=== PATIENT | female | born 2000 ===

== ENCOUNTER 2022-12-21 15:39 | Outpatient (REF) | payer MEDICAID, SELFPAY | END 2022-12-21 15:40 | disposition home or self-care (01) | LOC: HO.CHCLNP 15:39 | PROVIDERS: Visit Provider Pediatrics | DX: N76.0 Acute vaginitis (principal); B96.89 Other specified bacterial agents as the cause of diseases classified elsewhere | CPT/HCPCS: 81513; 87480; 87510; 87660 ==

== ENCOUNTER 2023-01-17 09:53 | Outpatient (REF) | payer MEDICAID, SELFPAY ==
[2023-01-18 15:21] LABS: Influenza A PCR NEGATIVE (Negative); Influenza B PCR NEGATIVE (Negative); Resp Syncy Virus RNA Qual PCR NEGATIVE (Negative); SARS COV2 PCR INHOUSE NEGATIVE (Negative)
== END 2023-01-17 09:54 | disposition home or self-care (01) ==
LOC: HO.LNP 09:53
PROVIDERS: Visit Provider Emergency Medicine
DX: Z20.822 Contact with and (suspected) exposure to COVID-19 (principal); J06.9 Acute upper respiratory infection, unspecified
CPT/HCPCS: 0241U; 87070

== ENCOUNTER 2023-08-01 16:13 | Outpatient (REF) | payer MEDICAID, SELFPAY | END 2023-08-01 16:14 | disposition home or self-care (01) | LOC: HO.CHCLNP 16:13 | PROVIDERS: Visit Provider Family Medicine | DX: N76.0 Acute vaginitis (principal) | CPT/HCPCS: 36415; 81513; 87491; 87591 ==

== ENCOUNTER 2023-10-10 11:04 | Outpatient (REF) | payer MEDICAID, SELFPAY ==
[2023-10-10 15:05] LABS: MANUAL DIFF FLAG NO
[2023-10-10 15:15] LABS: Basophils Percent Auto 0.6 % (0-2); Eosinophils Absolute Auto 0.2 X10*3/uL (0.0-0.4); Eosinophils Percent Auto 2.8 % (0-4); Hematocrit 42.3 % (37.0-47.0); Hemoglobin 13.7 g/dl (12.0-16.0); Imm Gran Abs Auto 0.03 X10*3/uL (0.00-0.03); Imm Gran Pct Auto 0.4 % (0.0-0.4); Lymphocytes Absolute Auto 1.7 X10*3/uL (1.2-4.9); Lymphocytes Percent Auto 24.4 % (20-40); Mean Corpuscular HGB Conc 32.4 g/dl (31.0-35.0); Mean Corpuscular Hemoglobin 29.1 pg (27.0-33.0); Mean Platelet Volume 13.2 fL (9.4-12.3); Monocytes Absolute Auto 0.5 X10*3/uL (0.1-1.2); Monocytes Percent Auto 7.1 % (2-11); Neutrophils Absolute Auto 4.6 x10*3/uL (2.0-8.3); Neutrophils Percent Auto 64.7 % (45-73); Platelet Count 191 X10*3/uL (160-400); Red Cell Distribution Width 12.8 % (11.0-16.0); White Blood Count 7.1 X10*3/uL (4.8-10.8)
[2023-10-10 15:35] LABS: Alanine Aminotransferase 16 U/L (0-31); Albumin Level 4.3 g/dL (3.5-5.0); Alkaline Phosphatase 79 U/L (39-117); Anion Gap 12 (12-20); Aspartate Amino Transferase 17 U/L (5-31); Bilirubin Total 0.4 mg/dL (0.0-1.0); Blood Urea Nitrogen 8 mg/dL (9-16); Calcium 9.4 mg/dL (8.4-10.2); Carbon Dioxide 26 mmol/L (22-29); Chloride 105 mmol/L (96-108); Estimated Glomerular Filt Rate > 60; Glucose Random 90 mg/dL (60-115); Potassium 4.7 mmol/L (3.3-5.1); Sodium 138 mmol/L (135-145); Total Protein 7.8 g/dL (6.5-8.0)
[2023-10-10 15:58] LABS: HCG Quantitative < 2 mIU/mL; Insulin 14 uU/mL (2-29); Vitamin D 25-OH Total 14.8 ng/mL (>30)
[2023-10-10 16:03] LABS: Folate 5.5 ng/mL (> or = 4.0); Vitamin B12 450 pg/mL (200-900)
[2023-10-11 04:10] LABS: HIV AB/AG Nonreactive (Nonreactive); HIV Num 1 0.07 S/CO (0.00-0.99)
== END 2023-10-10 11:05 | disposition home or self-care (01) ==
LOC: HO.CHCLDS 11:04
PROVIDERS: Visit Provider Family Medicine
DX: R42 Dizziness and giddiness (principal)
CPT/HCPCS: 36415; 80053; 82306; 82607; 82746; 83525; 84443; 84702; 85025; 87389

== ENCOUNTER 2024-06-24 | Outpatient (REF) | payer MEDICAID, SELFPAY ==
[2024-06-24 16:25] LABS: Bacterial Vaginosis PCR POSITIVE (Negative); Candida Group PCR NOT DETECTED (Not Detect); Candida glab krusei PCR NOT DETECTED (Not Detect); Trichomonas vaginalis PCR NOT DETECTED (Not Detect)
[2024-06-26 19:23] LABS: C. trachomatis RNA TMA NOT DETECTED (NOT DETECTED); N. gonorrhoeae RNA TMA NOT DETECTED (NOT DETECTED)
[2024-07-03 10:20] LABS: Trichomonas (NAAT) NOT DETECTED
== END 2024-06-24 00:01 | disposition home or self-care (01) ==
LOC: HO.LNP
PROVIDERS: Visit Provider Pediatrics
DX: Z01.419 Encounter for gynecological examination (general) (routine) without abnormal findings (principal); R87.615 Unsatisfactory cytologic smear of cervix; Z11.3 Encounter for screening for infections with a predominantly sexual mode of transmission
CPT/HCPCS: 81515; 87491; 87591; 87661; 88175

== ENCOUNTER 2024-11-13 18:27 | Outpatient (REF) | payer MEDICAID, SELFPAY ==
--- OUTSIDE RECORDS SUMMARY | 2024-11-13 18:30 | XMS_ITS | Clinical Summary ---
Author Organization [facility] Address [address] [place] [address] Phone Care Team Providers Care Manager Organizational Name Role Phone Unavailable Primary Care Provider Unavailabl e Social History Tobacco Use Types Packs/Day Years Used Date Smoking Tobacco: Never Assessed Comments Unknown Sex and Gender Information Value Date Recorded Sex Assigned at Not on file Legal Sex Female 6:09 AM EST Gender Identity Not on file Sexual Orientation Not on file Plan of Treatment Health Maintenance Due Date Last Done Comments Gonorrhea/Chlamydia Screening 2000 HPV Vaccines (1 - 3-dose series) 2015 DTaP,Tdap,and Td Vaccines (1 - Tdap) 2019 Hepatitis B Vaccines (1 of 3 - 19+ 3-dose series) 2019 Cervical Cancer Screening: P ap Smear 2021 COVID-19 Vaccine ( - 2023-2 5 season) 2024 Depression Screening 04/17/2024 HIV Screening 04/17/2024 Hepatitis C Screening 04/17/2024 Social Influencers of Health Screening 04/17/2024 Influenza Vaccine (#1) 2025 HIB Vaccines Aged Out No longer eligi ble based on patient's age to complete this topic Hepatitis A Vaccines Aged Out No long er eligible based on patient's age to complete this topic IPV Vaccines Aged Out No longer eligi ble based on patient's age to complete this topic MMR Vaccines Aged Out No longer eligi ble based on patient's age to complete this topic Meningococcal ACWY Vaccine Aged Out N o longer eligible based on patient's age to complete this topic Meningococcal B Vaccine Aged Out No l onger eligible based on patient's age to complete this topic Pneumococcal Vaccine: Pediat rics (0 to 5 Years) and At-Risk Patients (6 to 49 Years) Aged Out No longer eligible b ased on patient's age to complete this topic RSV Immunization Patients Un maira 20 months Aged Out No longer eligible b ased on patient's age to complete this topic Varicella Vaccines Aged Out No longer eligible based on patient's age to complete this topic Insurance MEDICAID - [place]
== END 2024-11-13 18:28 | disposition home or self-care (01) ==
LOC: HO.HHCLNP 18:27
PROVIDERS: Visit Provider Advanced Practice Midwife
DX: R87.615 Unsatisfactory cytologic smear of cervix (principal)
CPT/HCPCS: 88175

== ENCOUNTER 2025-03-19 10:40 | Outpatient (REF) | payer MEDICAID, SELFPAY ==
--- OUTSIDE RECORDS SUMMARY | 2025-03-19 10:00 | XMS_ITS | Encounter Summary ---
Author Organization [employer] Address [address] [facility] [address] [place] [address] Care Team Providers Care Planer Stone Name Role Phone Mesha Martinez MD Primary Care Provider [phone] Encounter Details Date Type Department Care Team ([facility] Contact Info) Description 03/19/2025 10:00 AM EST Office Visit [facility] CH[facility] MED & PEDS [address] [place], [place] [phone] Mesha Martinez MD [address] [place] [address] Polyuria (Primary Dx); Vitamin D deficiency; Obesity (BMI 35.0-39.9 without comorbidity); Mild intermittent asthma without complication Social History Tobacco Use Types Packs/Day Years Used Date Smoking Tobacco: Never Passive Smoke Exposure: Never Smokeless Tobacco: Never Alcohol Use Standard Drinks/Week Comments Never 0 (1 standard drink = 0.6 oz pur e alcohol) Depression Answer Date Recorded Patient Health Questionnaire-9 Score 3 11/13/2024 Patient Health Questionnaire-9 Score 3 11/13/2024 Last PHQ-9: Questionnaire Data Not on file 0 11/13/2024 Housing Stability Answer Date Recorded What is your housing situation today? I have brandt javier 03/12/[address] you li ve. Do you have problems with any of the following? None of the above 03/12/2025 Food Insecurity Answer Date Recorded Within the past 12 months, y ou worried that your food would run out before you got money to buy more: Never True 03/12/2025 Within the past 12 months,th e food you bought just didn't last and you didn't have enough money to get more: Never True 10/2024 Transportation Answer Date Recorded In the past 12 months, has l ack of transportation kept you from medical appts, meetings, work or from getting things needed for daily living? No 03/12/2025 Utilities Answer Date Recorded In the past 12 months, has t he electric, gas, oil or water company threatened to shut off services in your home? No 03/12/2025 Depression Answer Date Recorded Patient Health Questionnaire-2 Score 0 11/13/2024 Internet Access Answer Date Recorded Internet Access Q1 Yes 03/12/2025 Internet Access Q2 Not on file 03/12/2025 Comments No Sex and Gender Information Value Date Recorded Sex Assigned at Female 03/06/2022 10:20 AM EDT Legal Sex Female 10:20 AM EDT Gender Identity Female 03/06/2022 10:20 AM EDT Sexual Orientation Choose not to disclose 2021 10:20 AM EDT documented as of this encounter Last Filed Vital Signs Vital Sign Reading Time Taken Comments Blood Pressure 110/70 03/19/2025 10:00 AM EST Pulse 80 03/19/2025 10:00 AM EST Temperature 36.8 C (98.2 F) 03/19/2025 10:00 AM EST Respiratory Rate 20 03/19/2025 10:00 AM EST Oxygen Saturation - - Inhaled Oxygen Concentration - - Weight 116 kg (256 lb) 03/19/2025 10:00 AM EST Height - - Body Mass Index 38.36 01/02/2025 2:45 PM EDT documented in this encounter Progress Notes * Mesha Martinez MD - 03/19/2025 10:00 AM EST Subjective Patient ID: Alba Bob is a 24 y.o. female who presents for foot pain. Alba Bob, 24 years Polyuria Since summer 2024, Alba Bob has experienced increased urinary frequency, including episodes of nocturia and urgency with large volumes of clear urine. Symptoms occur without increased fluid intake, caffeine, or energy drink consumption. Denies dysuria, hematuria, and changes in urine color. No asso ciation with menstrual cycle. No recent history of urinary tract infection. Ankle Pain Since January 2025, persistent bilateral ankle pain has been present, including pain upon waking and with standing, not relieved by ibuprofen or elevation. Occasional swelling noted, more pronounced on one side. History of right ankle sprain 8 years ago, managed with a boot and rest, with no fracture on prior X-ray. 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 Dry Eyes Reports chronic dry eyes, requiring frequent use of artificial tears, especially during computer use. Weight Gain Recent increase in weight from 250 to 256 pounds, with noted changes in eating habits, particularlyincreased intake during weekends. Control History Previously used Nexplanon implant, discontinued due to increased appetite and mood changes. Brief trial of oral contraceptive pills resulted in nausea and decreased appetite. Currently not using hormonal control.Only using condoms 100% of the time with stable partner from the past 3 years.Papdone was normal as well. Asthma Uses inhaler only during respiratory illness episodes when experiencing shortness of breath. Review of Systems Constitutional: Negative for activity change, chills, fever and unexpected weight change. Respiratory: Negative for cough, shortness of breath and wheezing. Cardiovascular: Negative for chest pain, palpitations and leg swelling. Gastrointestinal: Negative for abdominal pain and blood in stool. Endocrine: Negative for polydipsia and polyuria. Genitourinary: Positive for frequency. Negative for decreased urine volume, difficulty urinating, dyspareunia, dysuria, enuresis, flank pain, genital sores, hematuria, menstrual problem, pelvic pain,urgency, vaginal bleeding, vaginal discharge and vaginal pain. Musculoskeletal: Negative for arthralgias and gait problem. Skin: Negative for color change and rash. Neurological: Negative for dizziness and headaches. Hematological: Negative for adenopathy. Psychiatric/Behavioral: Negative for behavioral problems, dysphoric mood, hallucinations, sleep disturbance and suicidal ideas. The patient is not nervous/anxious. Objective BP 110/70 (BP Location: Left arm, Patient Position: Sitting, BP Cuff Size: Adult) Pulse80 Temp 98.2 ??F (36.8 ??C) (Oral) Resp 20 Wt 256 lb (116 kg) BMI 38.36 kg/m?? Physical Exam Constitutional: General: She is not in acute distress. Appearance: Normal appearance. She is not ill-appearing. HENT: Head: Normocephalic. Right Ear: Tympanic membrane and ear canal normal. Left Ear: Tympanic membrane and ear canal normal. Nose: Nose normal. Mouth/Throat: Mouth: Mucous membranes are moist. Pharynx: No oropharyngeal exudate or posterior oropharyngeal erythema. Eyes: Extraocular Movements: Extraocular movements intact. Conjunctiva/sclera: Conjunctivae normal. Pupils: Pupils are equal, round, and reactive to light. Cardiovascular: Rate and Rhythm: Normal rate and regular rhythm. Pulses: Normal pulses. Heart sounds: Normal heart sounds. No murmur heard. Pulmonary: Effort: Pulmonary effort is normal. No respiratory distress. Breath sounds: Normal breath sounds. Abdominal: Palpations: Abdomen is soft. Musculoskeletal: General: No swelling, tenderness or deformity. Normal range of motion. Cervical back: Normal range of motion. Right lower leg: No edema. Left lower leg: No edema. Right ankle: Normal. No swelling, deformity or ecchymosis. No tenderness. Normal range of motion. Left ankle: Normal. No swelling, deformity or ecchymosis. No tenderness. Normal range of motion. Skin: General: Skin is warm. Capillary Refill: Capillary refill takes less than 2 seconds. Findings: No rash. Neurological: General: No focal deficit present. Mental Status: She is alert and oriented to person, place, and time. Motor: No weakness. Gait: Gait normal. Psychiatric: Mood and Affect: Mood normal. Behavior: Behavior normal. Thought Content: Thought content normal. Judgment: Judgment normal. Assessment/Plan Diagnoses and all orders for this visit: Polyuria: - Polyuria of unclear etiology. Differential includes diabetes mellitus and bacterial vaginosis (BV) or other changes in vaginal stefany. - Ordered urinalysis and vaginal swab. Ordered blood work including glucose, cholesterol, liver function, and STD panel (Hepatitis C, HIV). Results to be reviewed and communicated via [employer]. Obesity (BMI 35.0-39.9 without comorbidity): - Obesity noted with weight increase from 250 to 256 lbs. - Ordered blood work including cholesterol and liver function tests. Ankle pain: - Chronic bilateral ankle pain, possibly related to prior sprain. Dry eyes: - Dry eyes managed with artificial tears. - Recommended continued use of artificial tears. Asthma: - Asthma managed with inhaler as needed. - Sent inhaler refill to [facility]. Polyuria - Urinalysis, Complete, with Reflex to Culture; Future - Hepatitis C Antibody with Reflex to HCV, RNA, Quantitative, Real-Time PCR; Future - Basic Metabolic Panel, Fasting; Future - CBC auto differential; Future - Hemoglobin A1c; Future - Hepatic Function Panel; Future - Vitamin D, 25-Hydroxy, Total, Immunoassay; Future - TSH W/Reflex to FT4; Future - Syphilis Screen; Future - Lipid Panel, Standard; Future - Bacterial Vaginosis Panel - Chlamydia/N. Gonorrhoeae RNA, TMA, Vaginal - POCT Urinalysis Vitamin D deficiency - Hepatitis C Antibody with Reflex to HCV, RNA, Quantitative, Real-Time PCR; Future - Basic Metabolic Panel, Fasting; Future - CBC auto differential; Future - Hemoglobin A1c; Future - Hepatic Function Panel; Future - Vitamin D, 25-Hydroxy, Total, Immunoassay; Future - TSH W/Reflex to FT4; Future - Syphilis Screen; Future - Lipid Panel, Standard; Future Obesity (BMI 35.0-39.9 without comorbidity) - Hepatitis C Antibody with Reflex to HCV, RNA, Quantitative, Real-Time PCR; Future - Basic Metabolic Panel, Fasting; Future - CBC auto differential; Future - Hemoglobin A1c; Future - Hepatic Function Panel; Future - Vitamin D, 25-Hydroxy, Total, Immunoassay; Future - TSH W/Reflex to FT4; Future - Syphilis Screen; Future - Lipid Panel, Standard; Future Mild intermittent asthma without complication Other orders - Ventolin HFA 108 (90 Base) MCG/ACT inhaler; Inhale 1 puff every 6 (six) hours if needed for wheezing. documented in this encounter Plan of Treatment Upcoming Encounters Date Type Department Care Team (Late st Contact Info) Description 04/16/2025 10:00 AM EST Office Visit [facility] OPTOMETRY [address] [place] [address] Pricilla Ng, OD [address] [place] [address] 04/21/2025 9:15 AM EST Office Visit [facility] MED & PEDS [address] [place] [address] Mesha Martinez MD [address] [place] [address] Scheduled Orders Name Type Priority Associated Diagnoses Order Schedule Urinalysis, Complete, with Reflex to Culture Lab Routine Polyuria Expected: 03/19/2025 (Approximate), Expires: 03/19/2026 Hepatitis C Antibody with Reflex to HCV, RNA, Quantitative, Real-Time PCR Lab Routine Polyuria Vitamin D deficiency Obesity (BMI 35.0-39.9 without comorbidity) Expected: 03/19/2025, Expires: 03/19/2026 Basic Metabolic Panel, Fasting Lab Routine Polyuria Vitamin D deficiency Obesity (BMI 35.0-39.9 without comorbidity) Expected: 03/19/2025 (Approximate), Expires: 03/19/2026 CBC auto differential Lab Routine Polyuria Vitamin D deficiency Obesity (BMI 35.0-39.9 without comorbidity) Expected: 03/19/2025 (Approximate), Expires: 03/19/2026 Hemoglobin A1c Lab Routine Polyuria Vitamin D deficiency Obesity (BMI 35.0-39.9 without comorbidity) Expected: 03/19/2025 (Approximate), Expires: 03/19/2026 Hepatic Function Panel Lab Routine Polyuria Vitamin D deficiency Obesity (BMI 35.0-39.9 without comorbidity) Expected: 03/19/2025 (Approximate), Expires: 03/19/2026 Vitamin D, 25-Hydroxy, Total, Immunoassay Lab Routine Polyuria Vitamin D deficiency Obesity (BMI 35.0-39.9 without comorbidity) Expected: 03/19/2025 (Approximate), Expires: 03/19/2026 TSH W/Reflex to FT4 Lab Routine Polyuria Vitamin D deficiency Obesity (BMI 35.0-39.9 without comorbidity) Expected: 03/19/2025 (Approximate), Expires: 03/19/2026 Syphilis Screen Lab Routine Polyuria Vitamin D deficiency Obesity (BMI 35.0-39.9 without comorbidity) Expected: 03/19/2025, Expires: 03/19/2026 Lipid Panel, Standard Lab Routine Polyuria Vitamin D deficiency Obesity (BMI 35.0-39.9 without comorbidity) Expected: 03/19/2025 (Approximate), Expires: 03/19/2026 Bacterial Vaginosis Panel Microbiology Routine Polyuria Ordered: 03/19/2025 Chlamydia/N. Gonorrhoeae RNA, TMA, Vaginal Microbiology Routine Polyuria Ordered: 03/19/2025 POCT Urinalysis Point of Care Testing Routine Polyuria Ordered: 03/19/2025 documented as of this encounter Visit Diagnoses Diagnosis Polyuria- Primary Vitamin D deficiency Obesity (BMI 35.0-39.9 without comorbidity) Mild intermittent asthma without complication documented in this encounter Additional Health Concerns Assessment Noted Time PHQ-9 Depression Total Score: 3 11/14/19 25 10:42 AM EDT documented as of this encounter Care Teams Planer Stone Relationship Specialty Start Date End Date Mesha Martinez MD [address] [place] [id number] PCP - General Family Medicine 05/14/13 documented as of this encounter
--- OUTSIDE RECORDS SUMMARY | 2025-03-19 13:09 | XMS_ITS | Encounter Summary ---
Author Organization [employer] Address [address] [place] [address] 7 [place] [address] Care Team Providers Care Webfocus Developer Name Role Phone Mesha Martinez MD Primary Care Provider Reason for Visit * Reason Onset Date Comments Medication Question 02/10/2025 Encounter Details Date Type Department Care Team ([facility] Contact Info) Description 02/10/2025 Telephone C [facility] MED [facility] PEDS [address] [place], [place] [phone] Mesha Martinez MD [address] [place] [address] Medication Question Social History Tobacco Use Types Packs/Day Years Used Date Smoking Tobacco: Never Passive Smoke Exposure: Never Smokeless Tobacco: Never Alcohol Use Standard Drinks/Week Comments Never 0 (1 standard drink = 0.6 oz pur e alcohol) Depression Answer Date Recorded Patient Health Questionnaire-9 Score 3 11/13/2024 Patient Health Questionnaire-9 Score 3 11/13/2024 Last PHQ-9: Questionnaire Data Not on file 0 11/13/2024 Depression Answer Date Recorded Patient Health Questionnaire-2 Score 0 11/13/2024 Comments No Sex and Gender Information Value Date Recorded Sex Assigned at Female 03/06/2022 10:20 AM EDT Legal Sex Female 10:20 AM EDT Gender Identity Female 03/06/2022 10:20 AM EDT Sexual Orientation Choose not to disclose 2021 10:20 AM EDT documented as of this encounter Miscellaneous Notes * Telephone Encounter - Ina Marino - 02/10/2025 10:05 AM EDT Harley Padron at [facility] requesting a new script for Vienva 0.1-20 MG-MCG tablet , current scriptwill last her 21 days . Insurance will cover 112 tablets , so a script of 112 tablets needs to be sent to [facility] Contact Nereida at [phone] documented in this encounter Plan of Treatment Upcoming Encounters Date Type Department Care Team (Late st Contact Info) Description 04/16/2025 10:00 AM EST Office Visit [facility] OPTOMETRY [address] [place], [place] [phone] Pricilla Ng, OD [address] [place], [place] [phone] 04/21/2025 9:15 AM EST Office Visit [facility] CHC MED & PEDS [address] [place] [address] Mesha Martinez MD [address] [place] [address] documented as of this encounter Visit Diagnoses Not on filedocumented in this encounter Additional Health Concerns Assessment Noted Time PHQ-9 Depression Total Score: 3 11/14/19 25 10:42 AM EDT documented as of this encounter Care Teams Webfocus Developer Relationship Specialty Start Date End Date Mesha Martinez MD [address] [place] [address] PCP - General Family Medicine 05/14/13 documented as of this encounter
--- OUTSIDE RECORDS SUMMARY | 2025-03-19 13:09 | XMS_ITS | Encounter Summary ---
Author Organization [employer] Address [address] [place] [address] 7 [place] [address] Care Team Providers Care Transfer Machine Operator Name Role Phone Mesha Martinez MD Primary Care Provider [phone] Reason for Visit * Reason Onset Date Comments Appointment Request 04/02/2023 Encounter Details Date Type Department Care Team ([facility] Contact Info) Description 04/02/2023 Telephone [facility] CHC MED & PEDS [address] [place], [place] [phone] Mesha Martinez MD [address] [place], [place] [phone] Appointment Request Social History Tobacco Use Types Packs/Day Years Used Date Smoking Tobacco: Never Passive Smoke Exposure: Never Smokeless Tobacco: Never Comments Unknown Sex and Gender Information Value Date Recorded Sex Assigned at Female 03/06/2022 10:20 AM EDT Legal Sex Female 10:20 AM EDT Gender Identity Female 03/06/2022 10:20 AM EDT Sexual Orientation Choose not to disclose 2021 10:20 AM EDT documented as of this encounter Miscellaneous Notes * Telephone Encounter - Brit Zhou - 04/02/2023 8:59 AM EST Tc from mom requesting an appointment with PCP. States pt recently had a UTI and strep throat. Please contact mom at [phone] documented in this encounter Plan of Treatment Upcoming Encounters Date Type Department Care Team ([facility] Contact Info) Description 04/16/2025 10:00 AM EST Office Visit [facility] OPTOMETRY [address] [place] [address] Pricilla Ng, OD [address] [place] [address] 04/21/2025 9:15 AM EST Office Visit [facility] CHC MED & PEDS [address] [place] [address] Mesha Martinez MD [address] [place] [address] documented as of this encounter Visit Diagnoses Not on filedocumented in this encounter Care Teams Transfer Machine Operator Relationship Specialty Start Date End Date Mesha Martinez MD [address] [place] [address] PCP - General Family Medicine 05/14/13 documented as of this encounter
--- OUTSIDE RECORDS SUMMARY | 2025-03-19 13:09 | XMS_ITS | Encounter Summary ---
Author Organization [employer] Address [address] [place] [address] 7 [place] [address] Care Team Providers Care Research Associate Name Role Phone Mesha Martinez MD Primary Care Provider [phone] Reason for Visit * Reason Onset Date Comments Med Refill 05/22/2023 Encounter Details Date Type Department Care Team ([facility] st Contact Info) Description 05/22/2023 Telephone [facility] CHC MED & PEDS [address] [place], [place] [phone] Mesha Martinez MD [address] [place] [address] Med Refill Social History Tobacco Use Types Packs/Day Years [...] encounter Miscellaneous Notes * Telephone Encounter - Roxann Crowder RN - 05/22/2023 4:20 PM EST Noted. Returned call to mom and informed of PCP POC. Mom verbalized understanding and agrees with plan. * Telephone Encounter - Roxann Crowder RN - 05/22/2023 3:46 PM EST Returned call to mom regarding message below. Mom states that during last visit with PCP, PCP indicated that pt can start taking Pantoprazole 2 tabs daily. Informed mom that during last visit documents, it indicates Famotidine 2 tabs daily and no mention of the Pantoprazole. Mom states this was discussed during last visit and pt has been taking two plus the pepcid. Mom informed that message wouldbe sent to PCP for clarification and refill request. Mom agrees with plan. * Telephone Encounter - Nidia Benavides - 05/22/2023 9:02 AM EST Tc from mother requesting a New script for pantoprazole (ProtoNix) 40 MG EC tablet. Mother states Script must indicate two tablets a day or daily due to Provider of Gastro @ [facility] in [place] Advising pt must take two tablets a Day. Please contact pt mother @ [phone] documented in this encounter Plan of Treatment Upcoming Encounters Date Type Department Care Team ([facility] st Contact Info) Description 04/16/2025 10:00 AM EST Office Visit [facility] OPTOMETRY [address] [place] [address] Pricilla Ng, OD [address] [place] [address] 04/21/2025 9:15 AM EST Office Visit [facility] CHC MED & PEDS [address] [place] [address] Mesha Martinez MD [address] [place] [address] documented as of this encounter Visit Diagnoses Not on filedocumented in this encounter Care Teams Research Associate Relationship Specialty Start Date End Date Mesha Martinez MD [address] [place] [address] PCP - General Family Medicine 05/14/13 documented as of this encounter
--- OUTSIDE RECORDS SUMMARY | 2025-03-19 13:09 | XMS_ITS | Encounter Summary ---
Author Organization [employer] Address [address] [facility] 7 [place] [address] Care Team Providers Care Flotation Operator Name Role Phone Mesha Martinez MD Primary Care Provider [phone] Reason for Visit * Reason Onset Date Comments Nurse Triage 01/31/2023 Encounter Details Date Type Department Care Team ([facility] st Contact Info) Description 01/31/2023 Telephone [facility] CHC MED & PEDS [address] [place], [place] [phone] Mesha Martniez MD [address] [place] [address] Nurse Triage Social History Tobacco Use Types Packs/Day Years [...] encounter Miscellaneous Notes * Telephone Encounter - Isabella Sweet RN - 01/31/2023 10:58 AM EDT Triage call Pt reports diarrhea-like BM today up to 7 times. Pt has hx of gerd and protonix has been effective to help this . Pt was seen in [facility] 01/17/23 dx with pharyngitis and antibiotics, amoxicillin 500mg bid x10 days. . Pt just finished antibiotics 01/28. Pt is drinking adequate liquids. Abdominal pain only comes with BM and once passed pain goes away. Pt is advised to continue to increaseliquids to 6-8 glasses daily. Continue to take protonix as prescribed and if symptoms not gone by Sunday02/02/23 come to [facility] to be seen in [facility]. 830am -400pm open. Pt agrees with this disposition and plan. Home care reviewed. Protocol Used: Abdominal Pain - Female (Adult) Protocol-Based Disposition: Home Care Positive Triage Question: * Mild abdominal pain * All higher-acuity triage questions were negative Care Advice Discussed: * Reassurance and Education - Stomach Pain * Rest * Drink Clear Fluids * Diet * Pass a Stool * Reasons To Call Back - Severe pain lasts over 1 hour - Constant pain lasts over 2 hours - Intermittent pains (e.g., comes and goes, cramps) lasts over 48 hours - You are - You become worse * Telephone Encounter - Yue Mills - 01/31/2023 10:08 AM EDT Symptom: Abdominal Pain - Female - Not Outcome: Schedule an appointment to be seen within 24 hours Reason: Caller denied all higher acuity questions The caller accepted this outcome Mother states medication pantoprazole (ProtoNix) 40 MG EC tablet does not seem to be working . documented in this encounter Plan of Treatment Upcoming Encounters Date Type Department Care Team (Late st Contact Info) Description 04/16/2025 10:00 AM EST Office Visit [facility] OPTOMETRY [address] [place] [address] Pricilla Ng, OD [address] [place] [address] 04/21/2025 9:15 AM EST Office Visit [facility] CHC MED & PEDS [address] [place] [address] Mesha Martinez MD [address] [place] [address] documented as of this encounter Visit Diagnoses Not on filedocumented in this encounter Care Teams Flotation Operator Relationship Specialty Start Date End Date Mesha Martinez MD [address] [place] [address] PCP - General Family Medicine 05/14/13 documented as of this encounter
--- OUTSIDE RECORDS SUMMARY | 2025-03-19 13:09 | XMS_ITS | Encounter Summary ---
Author Organization [employer] Address [address] [place] [address] 7 [place] [address] Care Team Providers Care Proposal Engineer Name Role Phone Mesha Martinez MD Primary Care Provider [phone] Reason for Visit * Reason Comments Med Refill Encounter Details Date Type Department Care Team (Late Contact Info) Description 09/21/2022 Refill [facility] CHC MED & PEDS [address] [place], [place] [phone] Mesha Martinez MD [address] [place], [place] [phone] Social History Tobacco Use Types Packs/Day Years Used Date Smoking Tobacco: Never Assessed Comments Unknown Sex and Gender Information Value Date Recorded Sex Assigned at Female 03/06/2022 10:20 AM EDT Legal Sex Female 10:20 AM EDT Gender Identity Female 03/06/2022 10:20 AM EDT Sexual Orientation Choose not to disclose 2021 10:20 AM EDT COVID-19 Exposure Response Date Recorded In the last 10 days, have yo u been in contact with someone who was confirmed or suspected to have Coronavirus/COVID-19? No / Unsure 08/28/2022 9:23 AM EDT documented as of this encounter Plan of Treatment Upcoming Encounters Date Type Department Care Team (Late Contact Info) Description 04/16/2025 10:00 AM EST Office Visit [facility] OPTOMETRY [address] [place], [place] [phone] Pricilla Ng, OD [address] [place] [address] 04/21/2025 9:15 AM EST Office Visit [facility] CHC MED & PEDS [address] [place] [address] Mesha Martinez MD [address] [place] [address] documented as of this encounter Visit Diagnoses Not on filedocumented in this encounter Care Teams Proposal Engineer Relationship Specialty Start Date End Date Mesha Martinez MD [address] [place] [address] PCP - General Family Medicine 05/14/13 documented as of this encounter
--- OUTSIDE RECORDS SUMMARY | 2025-03-19 13:09 | XMS_ITS | Encounter Summary ---
Author Organization [employer] Address [address] [facility] [facility] [address] 7[address] [place] [address] Care Team Providers Care Count Team Clerk Name Role Phone Mesha Martinez MD Primary Care Provider [phone] Encounter Details Date Type Department Care Team (Latest Contact Info) Description 03/19/2025 Travel Social History Tobacco Use Types Packs/Day Years [...] 04/16/2025 10:00 AM EST Office Visit [facility] OPTOMETRY [address] [place], [place] [phone] Pricilla Ng, OD [address] [place] [address] 04/21/2025 9:15 AM EST Office Visit [facility] CHC MED & PEDS [address] [place] [address] Mesha Martinez MD [address] [place] [address] documented as of this encounter Visit Diagnoses Not on filedocumented in this encounter Additional Health Concerns Assessment Noted Time PHQ-9 Depression Total Score: 3 11/14/19 25 10:42 AM EDT documented as of this encounter Care Teams Count Team Clerk Relationship Specialty Start Date End Date Mesha Martinez MD [address] [place] [address] PCP - General Family Medicine 05/14/13 documented as of this encounter
--- OUTSIDE RECORDS SUMMARY | 2025-03-19 13:09 | XMS_ITS | Encounter Summary ---
Author Organization [employer] Address [address] [place] [address] 7t [place] [address] Care Team Providers Care Admissions Dean Name Role Phone Mesha Martinez MD Primary Care Provider [phone] Encounter Details Date Type Department Care Team (Late Contact Info) Description 11/05/2024 Orders Only [facility] MEDICINE [address] [place], [place] [phone] Lynn Burroughs CNM [address] [place] [address] Social History Tobacco Use Types Packs/Day Years Used Date Smoking Tobacco: Never Passive Smoke Exposure: Never Smokeless Tobacco: Never Alcohol Use Standard Drinks/Week Comments Never 0 (1 standard drink = 0.6 oz pur e alcohol) Comments No Sex and Gender Information Value [...] Description 04/16/2025 10:00 AM EST Office Visit [facility] OPTOMETRY [address] [place] [address] Pricilla Ng, OD [address] [place] [address] 04/21/2025 9:15 AM EST Office Visit [facility] CHC MED & PEDS [address] [place] [address] Mesha Martinez MD [address] [place] [address] documented as of this encounter Visit Diagnoses Not on filedocumented in this encounter Care Teams Admissions Dean Relationship Specialty Start Date End Date Mesha Martinez MD [address] [place] [address] PCP - General Family Medicine 05/14/13 documented as of this encounter
--- OUTSIDE RECORDS SUMMARY | 2025-03-19 13:09 | XMS_ITS | Clinical Summary ---
Author Organization [address] [facility] Address [address] [place] [address] Phone Care Team Providers Care Aboriginal Community [employer] Member Name Role Phone Unavailable Primary Care Provider [...] Cervical Cancer Screening: P ap Smear 2021 HIV Screening 04/17/2024 Hepatitis C Screening 04/17/2024 Social Influencers of Health Screening 04/17/2024 Depression Screening 05/07/2024 COVID-19 Vaccine (1 - 2024-2 6 season) 2025 Influenza Vaccine (#1) 2025 RSV Immunization Adult Patie nts (1 - 1-dose 75+ series) 2075 HIB Vaccines Aged Out No longer eligi [...]
--- OUTSIDE RECORDS SUMMARY | 2025-03-19 13:09 | XMS_ITS | Clinical Summary ---
Author Organization [employer] Address [address] [place] [address] 7t [place] [address] Care Team Providers Care Addiction Treatment Counselor Name Role Phone Mesha Martinez MD Primary Care Provider [phone] Allergies No known active allergies Medications traZODone (Desyrel) 100 MG tablet Take 200 mg by mouth at bedtime. 023 Active Ventolin HFA 108 (90 Base) MCG/ACT inhalerIndicati ons:Mild persistent asthma without complication INHALE 2 PUFFS INTO THE LUNGS EVERY 6 HOURS NEEDED FOR WHEEZING 18 g 2 023 Active albuterol 108 (90 Base) MCG/ACT inhaler 2 puff by Inhalation route every 6 hours ;administer with spacer prn shortness of breath or wheezing as needed 18 g 023 Active cholecalciferol (Vitamin D-3) 50 MCG (2000 UT) capsuleIndicati ons:Vitamin D deficiency Take 1 capsule (50 mcg) by mouth Once per day. 120 capsule 2 024 Active pantoprazole (Protonix) 0.8 mg/mL injection Take 40 mg by mouth. 024 Active sucralfate (Carafate) 1 g tablet TAKE 1 TABLET BY MOUTH FOUR TIMES DAILY NEEDED FOR INDIGESTION BEFORE MEALS AND BEDTIME Active famotidine (Pepcid) 20 MG tablet TAKE 1 TABLET(20 MG) BY MOUTH TWICE DAILY 180 tablet 1 024 Active albuterol (2.5 MG/3ML) 0.083% nebulizer solutionIndicat ions:Mild intermittent asthma without complication Take 3 mL (2.5 mg) by nebulization every 6 (six) hours if needed for wheezing. 75 mL 11 024 Active loratadine (Claritin) 10 MG tabletIndicatio ns:Allergy, initial encounter Take 1 tablet (10 mg) by mouth Once per day. 90 tablet 3 025 Active fluticasone (Flonase) 50 MCG/ACT nasal spray SHAKE LIQUID AND USE 2 SPRAYS IN EACH NOSTRIL EVERY DAY 48 g 3 025 Active metroNIDAZOLE (Metrogel) 0.75 % vaginal gel APPLY 5 GRAMS INTRAVAGINALLY x 5 nights, then resume twice a week for 12 weeks 70 g 3 025 Active ibuprofen 800 MG tablet 1 tablet every 8 hours with food up x 7 days for menstrual cramps 21 tablet 1 025 Active pantoprazole (ProtoNix) 40 MG EC tabletIndicatio ns:Gastroesopha geal reflux disease without esophagitis TAKE 1 TABLET BY MOUTH DAILY 90 tablet 025 Active triamcinolone (Kenalog) 0.025 % cream APPLY TOPICALLY TO THE AFFECTED AREA TWICE DAILY 45 g 1 025 Active Ventolin HFA 108 (90 Base) MCG/ACT inhaler Inhale 1 puff every 6 (six) hours if needed for wheezing. 18 g 1 025 Active triamcinolone (Kenalog) 0.025 % cream APPLY TOPICALLY TO THE AFFECTED AREA TWICE DAILY 45 g 1 025 2024 Discontinued Ventolin HFA 108 (90 Base) MCG/ACT inhaler INHALE 2 PUFFS BY MOUTH EVERY 4 HOURS NEEDED FOR WHEEZING OR SHORTNESS OF BREATH 18 g 1 025 2024 Discontinued(R eorder (will not trigger notification to Pharmacy)) Vienva 0.1-20 MG-MCG tablet TAKE 1 TABLET BY MOUTH DAILY,SKIP LAST WEEK OF PILLS AND GO STRAIGHT TO NEW PACK 84 tablet 025 2024 Discontinued(S perico effects) Active Problems Problem Noted Date Diagnosed Date Vitamin D deficiency 12/18/2023 Gastroesophageal reflux disease without esophagi tis 12/18/2023 Dizziness 10/10/2023 Assessment & Plan (10/10/2023 11:12 AM EDT): Unknown etiology, persistent for 2 months. Will send lab testing and given chronicity strongly recommended f/up with PCP. Dysuria 08/01/2023 Vaginosis 08/01/2023 Assessment & Plan (08/01/2023 4:20 PM EDT): Will send sure swab, will send treatment and f/up with results. Mild intermittent asthma 10/05/2016 Attention deficit hyperactivity disorder 012 Encounters Date Type Department Care Team Description 03/19/2025 10:00 AM EST Office Visit [facility] MED & PEDS [address] [place] [address] Mesha Martinez MD Polyuria (Primary Dx); Vitamin D deficiency; Obesity (BMI 35.0-39.9 without comorbidity); Mild intermittent asthma without complication 03/19/2025 Travel 03/12/2025 Patient Outreach [address] [address] Mesha Martinez MD Pre-visit Planning (SDOH screening negative and Tobacco screening negative) 03/10/2025 11:15 AM EST Immunization [facility] [address] [place] [address] Encounter for immunization 03/10/2025 Travel 03/09/2025 Telephone [facility] [address] [place] [address] Mesha Martinez MD Provider out/ rs appt 03/07/2025 Refill [facility] [address] [place] [address] Mesha Martinez MD 03/03/2025 Patient Outreach [address] [address] Mesha Martinez MD Pre-visit Planning (Pre visit planning LVM ) 02/10/2025 Telephone [facility] [address] [place] [address] Mesha Matrinez MD Medication Question 02/09/2025 Refill [facility] [address] [place] [address] Lynn Nuno CNM 02/07/2025 Refill [facility] CHC MED & PEDS [address] [place] [address] Mesha Martinez MD Gastroesophageal reflux disease without esophagitis 02/02/2025 Refill [facility] CHC MED & PEDS [address] [place] [address] Mesha Martinez MD 01/02/2025 2:45 PM EDT Office Visit [facility]ED[facility] [address] [place], [place] [phone] Nicky Sanchez CNP UTI symptoms (Primary Dx); Polyuria 01/02/2025 Travel 01/01/2025 Telephone [facility] MEDICINE [address] [place], [place] [phone] Mesha Martinez MD Nurse Triage 12/29/2024 Telephone [facility] MEDICINE [address] [place], [place] [phone] Mesha Martinez MD Nurse Triage 12/23/2024 Refill [facility] WALK-IN CENTER [address] [place], [place] [phone] Mesha Martinez MD from Last 3 Months Immunizations Immunization Administration Dates Next Due DTaP, 5 pertussis antigens 07/19/2004,,2000,07/19,2000 HPV, Quadrivalent 06/27/2012,02/20/2012,12/15/19 12 Hep A, ped/adol, 2 dose 08/14/2007,10/02/2006 Hep A, ped/adol, 3 dose 10/02/2004 Hep B, Adolescent or Pediatric 09/26/2001,2000,2000 Hib (HbOC) 09/26/2001,2000,2000 IPV 07/19/2004, 2,2000,05/31 Influenza injectable quadriv alent IIV4 with preservative 04/15/2019 Influenza injectable quadriv alent preservative free 04/10/2023,01/27/2022,02/24/2021,03/16,02/06/2014 Influenza, seasonal, injecta ble, preservative free 03/10/2025,02/14/2024 MMR 07/19/2004,04/25/2001 Meningococcal MCV4P ACYW-135 10/05/2016,12/15/19 12 Tdap 12/15/2011 Varicella 08/14/2007,04/25/2001 Social History Tobacco Use Types Packs/Day Years Used Date Smoking Tobacco: Never Passive Smoke Exposure: Never Smokeless Tobacco: Never Tobacco Cessation:Counseling Given: Not Answered Alcohol Use Standard Drinks/Week Comments Never 0 [...] Q2 Not on file 03/12/2025 Comments No Intention Date Recorded No desire to become (finding) 0 07/03/2024 Sex and Gender Information Value Date Recorded Sex Assigned at Female 03/06/2022 10:20 AM EDT Legal Sex Female 10:20 AM EDT Gender Identity Female 03/06/2022 10:20 AM EDT Sexual Orientation Choose not to disclose 2021 10:20 AM EDT Last Filed Vital Signs Vital Sign Reading Time Taken Comments Blood Pressure 110/70 03/19/2025 10:00 AM EST Pulse 80 03/19/2025 10:00 AM EST Temperature 36.8 C (98.2 F) 03/19/2025 10:00 AM EST Respiratory Rate 20 03/19/2025 10:00 AM EST Oxygen Saturation 99% 10/28/2024 12:29 PM EDT Inhaled Oxygen Concentration - - Weight 116 kg (256 lb) 03/19/2025 10:00 AM EST Height 174 cm (5' 8.5 ) 01/02/2025 2:45 PM EDT Body Mass Index 38.36 01/02/2025 2:45 PM EDT Plan of Treatment Upcoming Encounters Date Type Department Care Team (Late st Contact Info) Description 04/16/2025 10:00 AM EST Office Visit [facility] OPTOMETRY [address] [place] [address] Pricilla Ng, OD [address] [place] [address] 04/21/2025 9:15 AM EST Office Visit [facility] CHC MED & PEDS [address] [place], [place] [phone] Mesha Martinez MD [address] [place] [address] Health Maintenance Due Date Last Done Comments Dental Oral Exam 2000 Dental Prophylaxis 2000 Dental X-Ray: Bitewings 2000 Dental X-Ray: Full Mouth 2000 Lipid Panel 2000 Pneumococcal Vaccine: Pediatrics (0 to 5 Years) and At-Risk Patients (6 to 49) Years (1 of 2 - PCV) 2019 DTaP/Tdap/Td Vaccines (7 - Td or Tdap) 12/14/2021 12/15/2011, 07/19/2004, 02/05/2002, Additional history exists COVID-19 Vaccine ( season) 2025 09/19/2020, 08/30/2020 Family Planning (PISQ) 07/03/2025 07/03/2024 Alcohol/Substance Use Screening 11/13/2025 11/13/2024 Depression Screening 11/13/2025 11/13/2024, 11/14/19 25 Disability Screening 11/13/2025 11/13/2024 SDOH Screening 03/12/2026 03/12/2025 Tobacco Screening 03/19/2026 03/19/2025 Pap Smear 11/14/2027 11/13/2024, 06/07, 06/07/2021, Additional history exists Zoster Vaccines (1 of 2) 2050 RSV Patients and Patients Aged 60 years or older (1 - 1-dose 75+ series) 2075 HIB Vaccines Completed 09/26/2001, 07/05, 2000 Hepatitis B Vaccines Completed 09/26/2001, 2000, 2000 IPV Vaccines Completed 07/19/2004, 09/05, 2000, Additional history exists Hepatitis A Vaccines Completed 08/14/2007, 10/03/19 07 HPV Vaccines Completed 06/27/2012, 02/04, 12/15/2011 Meningococcal Vaccine Completed 10/05/2016, 012 Hepatitis C Screening Completed 04/24/2019 HIV Screening Completed 10/10/2023 Influenza Vaccine Completed 03/10/2025, , 04/10/2023, Additional history exists Meningococcal B Vaccine Aged Out No l onger eligible based on patient's age to complete this topic RSV under 20 months Aged Out No longe r eligible based on patient's age to complete this topic Rotavirus Vaccines Aged Out No longer eligible based on patient's age to complete this topic Procedures Procedure Name Priority Date/Time Associated Diagnosis Comments POCT URINALYSIS DIPSTICK Routine 01/02/2025 2:53 PM EDT UTI symptoms PAP SMEAR Routine 11/13/2024 11:07 AM EDT Unsatisfactory cervical Papanicolaou smear HIV 1/2 ANTIGEN/ANTIBODY, FOURTH GENERATION W/RFL Routine 10/10/2023 11:06 AM EDT Dizziness [facility] HISTORICAL HEPATITIS C ANTIBODY RFLX Routine 04/24/2019 8:24 AM EST from Last 3 Months or Most Recently Relevant to Health Maintenance Results * POCT urinalysis dipstick manually resulted (01/02/2025 2:53 PM EDT) Color, UA Betty Clarity, UA Clear Glucose, UA Negative Bilirubin, UA Few 15 Comment:small Ketones, UA Negative Spec Grav, UA 1.030 Blood, UA Negative Negative, None Detected pH, UA 6.5 Protein, UA Negative Urobilinogen, UA 0.2 Leukocytes, UA Negative Negative, Rare, Trace Nitrite, UA Negative Negative, None Detected Appearance, UA clear QC Media Lot # Comment:[id number] Lot# Expiration Date Comment:02/03/2025 Urine 01/02/2025 2:53 PM EDT Result [facility] POINT OF CARE TEST ENTER/ EDIT ORDERABLES Final Result * Pap Smear (11/13/2024 11:07 AM EDT) Swab 11/13/2024 11:0 7 AM EDT 11/14/2024 8:15 AM EDT Narrative [facility] - 11/19/2024 9:08 AM EDT ----- ------- Name: Eula Bob Age/Sex: 24/F : 2000 Unit#: [id number] Attend Dr: LYNN NUNO CNM Re11/13/24 Status: DEP REF Location: [facility] Disch: ----- ------- SPEC : [id number] RECD: 11/14/24 STATUS: TY LAZAR NUM: [id number] ERIC: 11/13/[address] [facility] [address]: LYNN NUNO [facility] ENTERED: 11/14/24 SP TYPE: Pap Smr OT DR: ORDERED: Pap Smear Interpretation Satisfactory for evaluation (following reprocessing with acid wash procedure) Negative for intraepithelial lesion or malignancy. Scant cellularity. Abundant blood. Clinical Information LMP: Unknown date Previous PAP test: 06/2024, Unsatisfactory cervical Papanicolaou smear Other history: Implantable control, unsatisfactory cervical pap smear Material Received ThinPrep-Cervical PAP Disclaimer As of February 27, 2024, the technical services to include automated prescreening performed by the ThinPrep Imaging System, PAP screening and HPV testing will be performed at [facility] (CLIA #[id number]), [address] [place] [address]. Testing for HPV was performed using the Denice JOSEMANUEL [id number] system. The presence of HPV in the female genital tract is associated with a number of diseases, including cervical carcinoma. The HPV DNA high risk pool tests for HPV 31, 33, 35, 39, 45, 51, 52, 56, 58, 59, 66 and 68. The testing for HPV 16 and 18 genotypes has also been performed. A positive result indicates detection of nucleic acid sequences from one or more subtypes, whereas a negative result indicates such sequences were not detected. All professional services are performed by [facility] ([address] [place] [address], [place] [address]; ; CLIA #[id number]). The PAP Test is a screening procedure with the inherent possibility of both false negative and false positive results. Results should be interpreted in the context of historic and current clinical findings. Reliability of the PAP Test is enhanced by performing the test on a regular repetitive basis. ----- ------- Signed (signature on file) NADYA Willard ([facility]) 11/19/24 0908 ----- ------- END OF REPORT us Lynn Nuno [facility] CYTOLOGY ORDERABLES F inal Result [facility] [address] [place] [phone] * HIV-1/2 Antigen and Antibodies, Fourth Generation, with Reflexes (10/10/2023 11:06 AM EDT) [facility] HIV AB/AG Nonreactive Nonreactive [facility] Comment:HIV-1 p24 Ag and/or HIV-1/HIV-2 Ab not detected.A test result that is nonreactive does not exclude thepossibility of exposure to or infection with HIV-1 and/orHIV-2. Nonreactive results in this assay for individualswith prior exposure to HIV-1 and/or HIV-2 may be due toantigen and antibody levels that are below the limit ofdetection of this assay.The ScanDigital HIV Ag/Ab Combo assay result andsupplemental assay results should be interpreted inconjunction with the patient's clinical presentation,history and other laboratory results. If the results areinconsistent with clinical evidence, additional testing issuggested to confirm the result. Blood Venous blood specimen / Unknown 10/10/2023 11:06 AM EDT 10/10/2023 3:01 PM EDT us Natasha Apodaca MD LAB BLOOD ORDERABLES Final Re sult [facility] [address] [place] [address] [phone] * HEPATITIS C ANTIBODY RFLX (04/24/2019 8:24 AM EST) HEPATITIS C ANTIBODY NONREACTIVE NONREACTIVE [facility] Comment: Antibodies to HCV not detected; does not exclude early acute HCV infection. 04/24/2019 8:24 AM EST us Mesha Martinez MD HISTORICAL/NON ORDERABLE LABS Final Result Performing Organization Address City/[facility] Co de Phone Number [facility] [address] from Last 3 Months or Most Recently Relevant to Health Maintenance Insurance [facility] [place] AD[place] Care Teams Addiction Treatment Counselor Relationship Specialty Start Date End Date Mesha Martinez MD [address] [place] [id number] PCP - General Family Medicine 05/14/13
--- OUTSIDE RECORDS SUMMARY | 2025-03-19 13:09 | XMS_ITS | Encounter Summary ---
Author Organization [facility] Address [address] [place] [address] Care Team Providers Care Mash Filter Cloth Changer Name Role Phone Unavailable Primary Care Provider Unavailabl e Encounter Details Date Type Department Care Team (Late st Contact Info) Description 04/17/2024 Lab Requisition [facility] Lab [address] [facility] [place] [address] Rusty Nash DMD [address] [place] [address] Gingival enlargement Social History Tobacco Use Types Packs/Day Years Used Date Smoking Tobacco: Never Assessed Comments Unknown Sex and Gender Information Value Date Recorded Sex Assigned at Not on file Legal Sex Female 6:09 AM EST Gender Identity Not on file Sexual Orientation Not on file documented as of this encounter Plan of Treatment Not on file documented as of this encounter Procedures Procedure Name Priority Date/Time Associated Diagnosis Comments TISSUE EXAM Routine 04/16/2024 Gingival enlargement documented in this encounter Results * Tissue Exam (04/16/2024) Final Diagnosis Oral Cavity, 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 1:21 PM EST [facility] Clinical Information [id number] 1:21 PM EST [facility] Gross Description A. Oral Cavity, gingival overgrowth: Labeled gingiva . Received in formalin is a white, rubbery, 0.7 cm in greatest diameter slightly polypoid portion of tissue which is inked blue at the base, bisected, and submitted in entirety in one cassette, two pieces, multiple levels on one slide. TS 4 1:21 PM EST [facility] Disclaimer NOTE: The immunohistochemical tests and in situ hybridization tests were developed and their performance characteristics were determined by [facility]. They have not been cleared or approved by the U.S. Food and Drug Administration. The FDA has determined that such clearance or approval is not necessary. These tests are used for clinical purposes. They should not be regarded as investigational or for research. This laboratory is certified under the Clinical Laboratory Improvement Amendments of 1988 (CLIA) as qualified to perform high complexity clinical laboratory testing. (controls appropriate) Unless otherwise specified, all tissue is 10% NB formalin fixed and paraffin embedded. 4 1:21 PM EST [facility] Tissue Oral cavity structure / Unknown 04/16/2024 04/17/2024 6:17 AM EST us Rusty Nash DMD LAB PATHOLOGY ORDERABLES Yesenia ardon Result [facility] [address] [place] [address], documented in this encounter Visit Diagnoses Diagnosis Gingival enlargement Other specified periodontal diseases documented in this encounter
--- OUTSIDE RECORDS SUMMARY | 2025-03-19 13:09 | XMS_ITS | Encounter Summary ---
Author Organization [employer] Address [address] [place] [address] [address] [place] [address] Care Team Providers Care Security Officers And Guards Name Role Phone Mesha Martinez MD Primary Care Provider [phone] Reason for Visit * Reason Onset Date Comments Nurse Triage 11/23/2022 Encounter Details Date Type Department Care Team ([facility] st Contact Info) Description 11/23/2022 Telephone [facility] [address] [place], [place] [phone] Mesha Martinez MD [address] [place] [address] Nurse Triage Social History Tobacco Use Types [...] Telephone Encounter - Isabella Sweet RN - 11/23/2022 9:20 AM EDT Triage call Pt mother , ISELA Reyez, reports that Pt is at work and has permission to make apt for Pt. Pt has been seen 6/2 for similar symptoms. Dx yeast infection. Pt has had burning with urination for past several days. Neg for frequency or hesitancy. Neg for fever. No other symptoms reported. Apt in [facility] 11/23 @ 300pm. Requested permission to book from [facility]. Insurance is verified as active prior to booking. Protocol Used: Vaginal Symptoms (Adult) Protocol-Based Disposition: See in Office or Video Visit within 3 Days Positive Triage Questions: * Symptoms of a yeast infection (i.e., itchy, white discharge, not bad smelling) and not improved > 3 days following CARE ADVICE * Patient wants to be seen * All higher-acuity triage questions were negative * Telephone Encounter - Nora Viveros - 11/23/2022 9:02 AM EDT Tc from patients Mom (on [employer]) Symptom: Vaginal Symptoms - Not Bleeding, itchiness and burning when urinating. Outcome: Schedule an appointment to be seen within 24 hours Reason: Caller denied all higher acuity questions The caller accepted this outcome documented in this encounter Plan of Treatment Upcoming Encounters Date Type Department Care Team (Late st Contact Info) Description 04/16/2025 10:00 AM EST Office Visit [facility] [address] [place] [address] Pricilla Ng, OD [address] [place] [address] 04/21/2025 9:15 AM EST Office Visit [facility] [address] [place] [address] Mesha Martinez MD [address] [place] [address] documented as of this encounter Visit Diagnoses Not on filedocumented in this encounter Care Teams Security Officers And Guards Relationship Specialty Start Date End Date Mesha Martinez MD [address] [place] [address] PCP - General Family Medicine 05/14/13 documented as of this encounter
--- OUTSIDE RECORDS SUMMARY | 2025-03-19 13:09 | XMS_ITS | Encounter Summary ---
Author Organization [employer] Address [address] [place] [address] [address] [place] [address] Care Team Providers Care Warehouser Name Role Phone Mesha Martinez MD Primary Care Provider [phone] Encounter Details Date Type Department Care Team (Late Contact Info) Description 10/08/2022 Orders Only [facility]S [address] [place], [place] [phone] Mesha Martinez MD [address] [place], [place] [phone] Social History Tobacco Use Types Packs/Day Years [...] suspected to have Coronavirus/COVID-19? No / Unsure 10/06/2022 12:59 PM EDT documented as of this encounter Plan of Treatment Upcoming Encounters Date Type Department Care Team (Late Contact Info) Description 04/16/2025 10:00 AM EST Office Visit [facility] [address] [place], [place] [phone] Pricilla Ng, OD [address] [place] [address] 04/21/2025 9:15 AM EST Office Visit [facility] [address] [place] [address] Mesha Martinez MD [address] [place] [address] documented as of this encounter Visit Diagnoses Not on filedocumented in this encounter Care Teams Warehouser Relationship Specialty Start Date End Date Mesha Martinez MD [address] [place] [address] PCP - General Family Medicine 05/14/13 documented as of this encounter
--- OUTSIDE RECORDS SUMMARY | 2025-03-19 13:09 | XMS_ITS | Encounter Summary ---
Author Organization [employer] Address [address] [place] [address] [address] [place] [address] Care Team Providers Care Navy Fighter Pilot Name Role Phone Mesha Martinez MD Primary Care Provider [phone] Encounter Details Date Type Department Care Team (Late Contact Info) Description 05/19/2022 Orders Only [facility] [address] [place], [place] [phone] Marry Horne LPN Social History Tobacco Use Types Packs/Day Years [...] Description 04/16/2025 10:00 AM EST Office Visit [facility] [address] [place] [address] Pricilla Ng, OD [address] [place] [address] 04/21/2025 9:15 AM EST Office Visit [facility] [address] [place] [address] Mesha Martinez MD [address] [place] [address] documented as of this encounter Visit Diagnoses Not on filedocumented in this encounter Care Teams Navy Fighter Pilot Relationship Specialty Start Date End Date Mesha Martinez MD [address] [place] [address] PCP - General Family Medicine 05/14/13 documented as of this encounter
--- OUTSIDE RECORDS SUMMARY | 2025-03-19 13:09 | XMS_ITS | Encounter Summary ---
Author Organization [employer] Address [address] [facility] [address] [place] [address] Care Team Providers Care Jewel Cupping Machine Operator Name Role Phone Mesha Martinez MD Primary Care Provider [phone] Reason for Visit * Reason Comments Med Refill Encounter Details Date Type Department Care Team (Late st Contact Info) Description 02/09/2025 Refill [facility] [address] [place], [place] [phone] Lynn Burroughs, AVEM [address] [place], [place] [phone] Social History Tobacco Use Types Packs/Day Years [...] Description 04/16/2025 10:00 AM EST Office Visit [facility] [address] [place] [address] Pricilla Ng OD [address] [place] [address] 04/21/2025 9:15 AM EST Office Visit [facility] [address] [place] [address] Mesha Martinez MD [address] [place] [address] documented as of this encounter Visit Diagnoses Not on filedocumented in this encounter Additional Health Concerns Assessment Noted Time PHQ-9 Depression Total Score: 3 11/14/19 25 10:42 AM EDT documented as of this encounter Care Teams Jewel Cupping Machine Operator Relationship Specialty Start Date End Date Mesha Martinez MD [address] [place] [address] PCP - General Family Medicine 05/14/13 documented as of this encounter
[2025-03-19 14:04] LABS: MANUAL DIFF FLAG NO
[2025-03-19 14:34] LABS: Hematocrit 39.9 % (37.0-47.0); Hemoglobin 13.1 g/dl (12.0-16.0); Imm Gran Abs Auto 0.02 X10*3/uL (0.00-0.03); Imm Gran Pct Auto 0.3 % (0.0-0.4); Lymphocytes Absolute Auto 1.5 X10*3/uL (1.2-4.9); Mean Corpuscular HGB Conc 32.8 g/dl (31.0-35.0); Mean Corpuscular Hemoglobin 28.6 pg (27.0-33.0); Mean Corpuscular Volume 87.1 fL (80.0-98.0); NRBC Abs Auto 0.000 X10*3/uL (0.0-0.012); NRBC Pct Auto 0.0 /100WBC (0.0-0.2); Platelet Count 241 X10*3/uL (160-400); Red Blood Count 4.58 X10*6/uL (4.20-5.50); White Blood Count 6.3 X10*3/uL (4.8-10.8)
[2025-03-19 15:00] LABS: Alanine Aminotransferase 19 U/L (0-31); Albumin Level 4.3 g/dL (3.5-5.0); Alkaline Phosphatase 78 U/L (39-117); Anion Gap 10 (12-20); Aspartate Amino Transferase 29 U/L (5-31); Blood Urea Nitrogen 9 mg/dL (9-16); Calcium 9.0 mg/dL (8.4-10.2); Carbon Dioxide 24 mmol/L (22-29); Chloride 107 mmol/L (96-108); Cholesterol 141 mg/dL (<200); Estimated Glomerular Filt Rate > 60; HDL Cholesterol 44 mg/dL (>40); Potassium 3.9 mmol/L (3.3-5.1); Sodium 137 mmol/L (135-145); Total Protein 7.6 g/dL (6.5-8.0); Triglycerides 74 mg/dL (<150)
[2025-03-19 18:22] LABS: Appearance Urine Turbid; Glucose Urine UA Negative (Negative); PH 5.5 (5.0-9.0); Specific Gravity - Urine 1.020 (1.005-1.025)
[2025-03-20 01:09] LABS: Bacterial Vaginosis PCR POSITIVE (Negative); Candida Group PCR NOT DETECTED (Not Detect); Candida glab krusei PCR NOT DETECTED (Not Detect); Trichomonas vaginalis PCR NOT DETECTED (Not Detect)
[2025-03-20 03:26] LABS: CT PCR NOT DETECTED (Not Detect.); NG PCR NOT DETECTED (Not Detect.)
[2025-03-20 03:44] LABS: Syphilis Screen Nonreactive (Nonreactive)
[2025-03-20 04:18] LABS: ~HepC Num1 0.13 S/CO (0.00-0.79); ~Hepatitis C Antibody Nonreactive (Nonreactive)
== END 2025-03-19 10:41 | disposition home or self-care (01) ==
LOC: HO.CHCLDS 10:40
PROVIDERS: Visit Provider Pediatrics
DX: R35.89 Other polyuria (principal); E55.9 Vitamin D deficiency, unspecified; E66.9 Obesity, unspecified; Z20.2 Contact with and (suspected) exposure to infections with a predominantly sexual mode of transmission; Z11.59 Encounter for screening for other viral diseases
CPT/HCPCS: 36415; 80048; 80061; 80076; 81001; 81515; 82306; 83036; 84443; 85025; 86780; 86803; 87491; 87591